=== PATIENT | female | born 2000 | race Caucasian/White ===

== ENCOUNTER → 2025-01-01 | Outpatient (CLI) | payer BC, MEDICAID, SELFPAY ==
--- NOTE | 2025-01-01 10:30 | XR_ITS ---
Examination: Pelvic ultrasound, transabdominal, complete Technique: Transabdominal ultrasound of the pelvis performed using grayscale imaging Date and time of exam: December 04, 2024 at 1032 hours INDICATIONS: Irregular heavy menses with pelvic cramping 3 months FINDINGS: Uterus 8.4 cm endometrial stripe 0.8 cm No uterine mass or intrauterine gestation Right ovary 5.5 cm arterial flow, 21 x 18 mm cyst Left ovary 3.4 cm arterial flow IMPRESSION: Right ovarian simple cyst, 2.1 x 1.7 x 1.8 cm
== END | disposition home or self-care (01) ==
PROVIDERS: PCP Nurse Practitioner Family; Referring Provider Nurse Practitioner Family; Visit Provider Nurse Practitioner Family
DX: N83.291 Other ovarian cyst, right side (principal)
CPT/HCPCS: 76856